=== PATIENT | male | born 1975 | race Caucasian/White ===

== ENCOUNTER 2017-03-29 09:53 | Emergency (ER) | payer OTHER ==
[~2017-03-29] VITALS: Ht 177.8 cm; Wt 99.8 kg
[2017-03-29] MEDS ORDERED: DIPHTH,PERTUSS(ACELL),TET TOX 0.5 ML DISP.SYRIN. VAX IM ONE (10:30)
[2017-03-29] MEDS ORDERED: HYDROcodone/APAP 5/325MG 1 TAB TABLET PO ONE (10:30)
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
[2017-03-29] MEDS ORDERED: ONDANSETRON ODT 4 MG TAB.RAPDIS. PO ONE (10:45)
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
[2017-03-29 11:13] VITALS: BP 117/68
[2017-03-29] MEDS ORDERED: HYDR-971 PO (11:25)
[2017-03-29] MEDS ORDERED: ONDA4TAB10 SL (11:25)
== END 2017-03-29 12:11 | disposition home or self-care (01) ==
LOC: ER 09:53
DX: S42.031A Displaced fracture of lateral end of right clavicle, initial encounter for closed fracture (principal); S22.41XA Multiple fractures of ribs, right side, initial encounter for closed fracture; F41.9 Anxiety disorder, unspecified; E78.00 Pure hypercholesterolemia, unspecified; V19.40XA Pedal cycle driver injured in collision with unspecified motor vehicles in traffic accident, initial encounter; Y93.55 Activity, bike riding; Y92.89 Other specified places as the place of occurrence of the external cause; Y99.8 Other external cause status
CPT/HCPCS: 71101; 73030; 90471; 90715; 99284-25

== ENCOUNTER → 2017-04-05 | Outpatient (CLI) | payer OTHER ==
[2017-03-29 11:13] VITALS: BP 117/68
[~2017-04-05] MED LIST: HYDR-971 PO; ONDA4TAB10 SL
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
== END | disposition home or self-care (01) ==
LOC: KCIC 15:59
PROVIDERS: ATTEND Physician Assistant
DX: R07.81 Pleurodynia (principal)
CPT/HCPCS: 71101

== ENCOUNTER → 2017-06-17 | Outpatient (CLI) | payer OTHER ==
[~2017-06-17] MED LIST changes: +ALPR0.5T6 PO; +ASPI325T11 PO; +ATOR40TA PO; +METO25TA4 PO; +PRAS10TA9 PO; +SIMV10TA3 PO
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
== END | disposition home or self-care (01) ==
LOC: KCIC 09:23
PROVIDERS: ATTEND Physician Assistant
DX: S22.41XA Multiple fractures of ribs, right side, initial encounter for closed fracture (principal); Z87.81 Personal history of (healed) traumatic fracture; X58.XXXA Exposure to other specified factors, initial encounter; Y93.89 Activity, other specified; Y92.89 Other specified places as the place of occurrence of the external cause; Y99.8 Other external cause status
CPT/HCPCS: 71020

== ENCOUNTER → 2018-03-24 | Outpatient (CLI) | payer OTHER ==
[~2018-03-24] MED LIST changes: -ALPR0.5T6 PO; -ASPI325T11 PO; -ATOR40TA PO; -HYDR-971 PO; -METO25TA4 PO; -ONDA4TAB10 SL; -PRAS10TA9 PO; +REGADENOSON 0.4 MG/5 ML DISP.SYRIN. IV; -SIMV10TA3 PO
== END | disposition home or self-care (01) ==
LOC: NM 08:34
DX: Z01.818 Encounter for other preprocedural examination (principal); I25.10 Atherosclerotic heart disease of native coronary artery without angina pectoris; E78.5 Hyperlipidemia, unspecified; E78.00 Pure hypercholesterolemia, unspecified; K21.9 Gastro-esophageal reflux disease without esophagitis
CPT/HCPCS: 78452; 93017; 96374; 96375; 96376; A9500; J2785

== ENCOUNTER → 2018-05-20 | Outpatient (CLI) | payer OTHER ==
[2017-10-06 14:33] VITALS: BP 104/64
[~2018-05-20] MED LIST changes: +ALPR0.5T6 PO; +ASPI-482 PO; +ASPI325T11 PO; +ATOR40TA PO; +HYDR-971 PO; +METO25TA4 PO; +ONDA4TAB10 SL; +PRAS10TA9 PO; -REGADENOSON 0.4 MG/5 ML DISP.SYRIN. IV; +SIMV10TA3 PO
--- NOTE | 2018-05-20 15:20 | KCIC ---
EXAM: Right shoulder, 3 views per HISTORY: Pain. COMPARISON: None. FINDINGS: 3 views of the right shoulder obtained. There is no fracture, dislocation or subluxation. IMPRESSION: No acute osseous finding. Electronically signed by: Licha Pitts MD (05/20/2018 3:17 PM) [place] [id number]
== END | disposition home or self-care (01) ==
LOC: KCIC 14:27
PROVIDERS: ATTEND Physician Assistant Medical
DX: M25.511 Pain in right shoulder (principal); E78.5 Hyperlipidemia, unspecified; E78.00 Pure hypercholesterolemia, unspecified; K21.9 Gastro-esophageal reflux disease without esophagitis; I25.10 Atherosclerotic heart disease of native coronary artery without angina pectoris; Z95.5 Presence of coronary angioplasty implant and graft; Z87.81 Personal history of (healed) traumatic fracture; Z82.49 Family history of ischemic heart disease and other diseases of the circulatory system
CPT/HCPCS: 73030

== ENCOUNTER → 2019-02-24 | Outpatient (CLI) | payer OTHER ==
[2017-10-06 14:33] VITALS: BP 104/64
[~2019-02-24] MED LIST changes: +HYDR-3164 PO; -HYDR-971 PO
--- NOTE | 2019-02-24 15:21 | KCIC ---
EXAM: THYROID ULTRASOUND. HISTORY: Tracheal deviation. COMPARISON: None. FINDINGS: Sonographic evaluation of the thyroid gland was performed. The right lobe measures 6.4 x 2.5 x 2.0 cm. The parenchyma is mildly heterogeneous. Multiple small colloid cysts measure up to 1.1 x 1.0 cm. The left lobe measures 5.7 x 2.4 x 2.3 cm. The parenchyma is mildly heterogeneous. Multiple small colloid cysts measure up to 1.0 cm. The isthmus measures 5 mm. IMPRESSION: 1. The thyroid is symmetrically mildly enlarged. Correlate with thyroid function test. 2. Multiple small bilateral colloid cysts are benign. Electronically signed by: Nolan Patterson MD (02/24/2019 3:18 PM) [facility]
== END | disposition home or self-care (01) ==
LOC: KCIC US 13:04
PROVIDERS: ATTEND Family Medicine
DX: E04.8 Other specified nontoxic goiter (principal); K63.89 Other specified diseases of intestine; J39.8 Other specified diseases of upper respiratory tract
CPT/HCPCS: 76536

== ENCOUNTER → 2019-03-27 | Outpatient (CLI) | payer OTHER ==
[2017-10-06 14:33] VITALS: BP 104/64
--- NOTE | 2019-03-27 09:46 | CARD ---
MR#: [id number] Date of Study: 03/27/2019 Ordering Physician: JUANPABLO OBREGON, Referring Physician: JUANPABLO OBREGON Tech: Jessa Benjamin ALONZO APPROVED REPORT EXAM: Two-dimensional and M-mode echocardiogram with Doppler and color Doppler. Other Information Quality : AverageHR: 65bpm Rhythm : NSR INDICATION CAD 2D DIMENSIONS RVDd3.6 (2.9-3.5cm)Left Atrium(2D)4.0 (1.6-4.0cm) IVSd1.1 (0.7-1.1cm)Aortic Root(2D)3.0 (2.0-3.7cm) LVDd5.0 (3.9-5.9cm)LVOT Diameter2.1 (1.8-2.4cm) PWd1.2 (0.7-1.1cm)LVDs3.6 (2.5-4.0cm) FS (%) 28.3 %SV65.4 ml LVEF(%)54.4 (>50%) M-Mode DIMENSIONS Left Atrium(MM)4.06 (2.5-4.0cm)Aortic Root3.23 (2.2-3.7cm) Aortic Valve AoV Peak Delio.122.9cm/sAoV VTI26.0cm AO Peak GR.6.0mmHgLVOT Peak Delio.103.5cm/s AO Mean GR.3mmHgAVA (VMAX)2.91cm2 ETTA (VTI)2.90cm2 Mitral Valve MV E Zfegqolb60.2cm/sMV DECEL JKFS080pd MV A Nxpurlvm85.0cm/sE/A Ratio1.1 Pulmonary Valve PV Peak Fyhdhpja743.4cm/s Tricuspid Valve TR P. Prsjnwts163cv/sRAP NETMNEZP8wkEy TR Peak Gr.65koGxWVJA14ygId Pulmonary Vein S1 Uacihqdb69.3cm/sD2 Wkogwoih37.2cm/s PVa upxvzxzp821keww LEFT VENTRICLE The left ventricle is normal size. There is mild concentric left ventricular hypertrophy. The left ve ntricular systolic function is normal. The Ejection Fraction is 55%. There is normal LV segmental wal l motion. Transmitral Doppler flow pattern is Grade II-pseudonormal filling dynamics. RIGHT VENTRICLE The right ventricle is normal size. There is normal right ventricular wall thickness. The right ventr icular systolic function is normal. ATRIA The left atrium is mildly dilated. The right atrium size is normal. The interatrial septum is intact with no evidence for an atrial septal defect or patent foramen ovale as noted on 2-D or Doppler imagi ng. AORTIC VALVE The aortic valve is normal in structure and function. The aortic valve is trileaflet. Doppler and Col or Flow revealed no significant aortic regurgitation. There is no significant aortic valvular stenosi s. MITRAL VALVE The mitral valve is normal in structure and function. There is no evidence of mitral valve prolapse. There is no mitral valve stenosis. Doppler and Color-flow revealed trace to mild mitral regurgitation . TRICUSPID VALVE The tricuspid valve is normal in structure and function. Doppler and Color Flow revealed trace tricus pid regurgitation. The PA pressure was estimated at 28 mmHg. There is no tricuspid valve prolapse or vegetation. There is no tricuspid valve stenosis. PULMONIC VALVE The pulmonary valve is normal in structure and function. Doppler and Color Flow revealed trace pulmon ic valvular regurgitation. There is no pulmonic valvular stenosis. GREAT VESSELS The aortic root is normal in size. The ascending aorta is normal in size. The IVC is normal in size a nd collapses >50% with inspiration. PERICARDIAL EFFUSION There is no evidence of significant pericardial effusion. Critical Notification Critical Value: No <Conclusion> The left ventricular systolic function is normal. The Ejection Fraction is 55%. There is normal LV segmental wall motion. Trace to mild mitral regurgitation. Trace tricuspid regurgitation. The PA pressure was estimated at 28 mmHg. There is no evidence of significant pericardial effusion. Signed by : Juanpablo Obregon, Electronically Approved : 03/27/2019 09:46:12
== END | disposition home or self-care (01) ==
LOC: ECHO 07:44
PROVIDERS: ATTEND Internal Medicine Cardiovascular Disease
DX: I34.0 Nonrheumatic mitral (valve) insufficiency (principal); I51.7 Cardiomegaly; I25.10 Atherosclerotic heart disease of native coronary artery without angina pectoris
CPT/HCPCS: 93306

== ENCOUNTER → 2020-04-04 | Outpatient (CLI) | payer OTHER ==
[2017-10-06 14:33] VITALS: BP 104/64
[~2020-04-04] MED LIST changes: +REGADENOSON 0.4 MG/5 ML DISP.SYRIN. IV ONE; +SIMV10TA15 PO; -SIMV10TA3 PO
--- NOTE | 2020-04-04 10:56 | CARD ---
MR#: [id number] Date of Study: 04/04/2020 Ordering Physician: JUANPABLO OBREGON, Referring Physician: JUANPABLO OBREGON, Tech: Ashley Webb APPROVED REPORT EXAM: Two-dimensional and M-mode echocardiogram with Doppler and color Doppler. Other Information Quality : AverageHR: 64bpm INDICATION Cardiac Disease: CAD RISK FACTORS Hypertension Hyperlipidemia 2D DIMENSIONS RVDd3.7 (2.9-3.5cm)Left Atrium(2D)4.0 (1.6-4.0cm) IVSd1.2 (0.7-1.1cm)Aortic Root(2D)3.1 (2.0-3.7cm) LVDd5.1 (3.9-5.9cm)LVOT Diameter2.3 (1.8-2.4cm) PWd1.1 (0.7-1.1cm)LVDs3.8 (2.5-4.0cm) FS (%) 25.9 %SV63.9 ml LVEF(%)50.7 (>50%) Aortic Valve AoV Peak Delio.117.1cm/sAoV VTI24.2cm AO Peak GR.5.5mmHgLVOT Peak Delio.119.8cm/s LVOT VTI 26.03cmAO Mean GR.3mmHg ETTA (VMAX)2.73ja8ZIC (VTI)4.30cm2 Mitral Valve MV E Vqweaxxo74.3cm/sMV DECEL DFDW690iu MV A Tqirsizn25.3cm/sMV E Mean Gr.1mmHg MV QKH09pkS/A Ratio1.4 MVA (PHT)3.21cm2 TDI E/Lateral E'5.1E/Medial E'8.7 Pulmonary Valve PV Peak Gvtzvzfq35.9cm/sPV Peak Grad.3mmHg Tricuspid Valve TR P. Cutiqzsn616ca/sRAP BGDEUULS4mcJt TR Peak Gr.73dkHjCOAG92ajYj Pulmonary Vein S1 Tpvjdrkv13.6cm/sD2 Fkwvvytj59.0cm/s PVa sytlcurh684vprq LEFT VENTRICLE The left ventricle is normal size. There is normal left ventricular wall thickness. The left ventricu lar systolic function is normal. The Ejection Fraction is 50-55%. There is normal LV segmental wall m otion. Transmitral Doppler flow pattern is Grade II-pseudonormal filling dynamics. RIGHT VENTRICLE The right ventricle is normal size. There is normal right ventricular wall thickness. Systolic functi on is borderline reduced. ATRIA The left atrium size is normal. The right atrium size is normal. The interatrial septum is intact wit h no evidence for an atrial septal defect or patent foramen ovale as noted on 2-D or Doppler imaging. AORTIC VALVE The aortic valve is normal in structure and function. Doppler and Color Flow revealed trace aortic re gurgitation. There is no significant aortic valvular stenosis. Calculated aortic valve area is 3.74 c m2 with maximum pressure gradient of 7 mmHg and mean pressure gradient of 4 mmHg. MITRAL VALVE The mitral valve is normal in structure and function. There is no evidence of mitral valve prolapse. There is no mitral valve stenosis. Doppler and Color-flow revealed trace mitral regurgitation. TRICUSPID VALVE The tricuspid valve is normal in structure and function. Doppler and Color Flow revealed trace tricus pid regurgitation with an estimated PAP of 36 mmHg. There is no tricuspid valve stenosis. PULMONIC VALVE The pulmonic valve is not well visualized. Doppler and Color Flow revealed trace pulmonic valvular re gurgitation. GREAT VESSELS The aortic root is normal in size. The IVC is normal in size and collapses >50% with inspiration. PERICARDIAL EFFUSION There is no evidence of significant pericardial effusion. Critical Notification Critical Value: No <Conclusion> The left ventricular systolic function is normal. The Ejection Fraction is 50-55%. There is normal LV segmental wall motion. Transmitral Doppler flow pattern is Grade II-pseudonormal filling dynamics. Trace mitral regurgitation. Trace tricuspid regurgitation with an estimated PAP of 36 mmHg. There is no evidence of significant pericardial effusion. Signed by : Juanpablo Obregon, Electronically Approved : 04/04/2020 10:56:11
--- NOTE | 2020-04-04 14:13 | RAD ---
MR#: [id number] Date of Study: 04/04/2020 Ordering Physician: JUANPABLO BUSCH, Referring Physician: GUMARO CLAY Tech: KAREN Robison, ARRT (R) (N) APPROVED REPORT Test Type: Pharmacological Stress Nurse/Tech: THEE Hazel Test Indications: CAD Cardiac History: PTCA, family hx , See Electronic Medical Record Medications: See Electronic Medical Record Medical History: See Electronic Medical Record Resting ECG: SR Resting Heart Rate: 64 bpm Resting Blood Pressure: 118/69mmHg Pretest Chest Pain: None Nurse/Tech Notes S1S2, regular rate, lungs CTA, denies SOA or CP. Consent: The procedure was explained to the patient in lay terms. Informed consent was witnessed. Mike eout was entered into [employer]. History and Stress Test performed by RT Narendra (R) (N) Pharm. Details Pharmacologic stress testing was performed using 0.4mg per 5ml of regadenoson given intravenously ove r 7-10 seconds. Stress Symptoms Denied any symptoms during exam. Pt tolerated well. POST EXERCISE Reason for Termination: Infusion complete Max HR: 89 bpm Max Blood Pressure: 116/57mmHg Blood Pressure response to exercise: Normal blood pressure response during stress. Heart Rate response to exercise: Normal heart rate response during stress Chest Pain: No. Arrhythmia: No. ST Change: No. INTERPRETATION Stress EKG Conclusion: Baseline EKG showed sinus rhythm. No ischemic changes at peak stress. No arr hythmias. Imaging Protocol IMAGE PROTOCOL: Rest Tc-99m/stress Tc-99m 1 day Rest: Stress: Viability: Radiopharm.Tc99m EcqseoxpoAr77u Sestamibi Wryl75kDs 32mCi Img Date 04/04/2020 04/04/2020 Inj-Img Xgej11dlt. 60min. Rest Admin Site:IV - Right AntecubitalAdministrator:RT Narendra (Talia)(N) Stress Admin Site: IV - Right AntecubitalAdministrator: RT Turner Mackey)(N) STRESS DATA End Diast. Vol.103.0mlAv. Heart Rate83.0bpm End Syst. Vol.14.0mlCO Index BSA0.0L/min Myocardial Dryt213.0gEject. Ezcdmhaz20.0% Stress Rates Pk. Fill Rate4.15EDV/secLVtime Pk. Fill 196.09msec Pk. Empty Rate5.16ESV/secLVtime Pk. Ajtbm697.56msec 1/3 Pk. Fill0.95EDV/sec Stress Scores Regional WT0.00Summed WT2.00 Regional WM0.00Summed WM1.00 Study quality was good. Left Ventricular size was Normal at Rest and Stress. Lung uptake was . Left Ventricular ejection fraction is 79%. The rest and stress images show normal perfusion, normal contraction and thickening. LV Perf. Quant 17 Seg. SSS0.00 17 Seg. SRS0.00 17 Seg. SDS0.00 Stress Defect Extent (% LAD)0.00Rest Defect Extent (% LAD)0.00Rev. Defect Extent (% LAD)0.00 Stress Defect Extent (% LCX) 0.00Rest Defect Extent (% LCX)0.00Rev. Defect Extent (% LCX)0.00 Stress Defect Extent (% RCA)0.00Rest Defect Extent (% RCA)0.00Rev. Defect Extent (% RCA)0.00 Stress Defect Extent (% KEILA)0.00Rest Defect Extent (% KEILA)0.00Rev. Defect Extent (% KEILA)0.00 Conclusion 1. Regadenoson cardioisotope stress test did not show any evidence of ischemia or infarct. 2. Normal left ventricular systolic function with ejection fraction calculated at 79%. 3. Low risk for cardiac events. Signed by : Juanpablo Busch, Electronically Approved : 04/04/2020 14:12:46
== END | disposition home or self-care (01) ==
LOC: ECHO 09:22
PROVIDERS: ATTEND Internal Medicine Cardiovascular Disease
DX: I25.10 Atherosclerotic heart disease of native coronary artery without angina pectoris (principal)
CPT/HCPCS: 36415; 78452; 80061; 93017; 93306; A9500; J2785